=== PATIENT | male | born 1955 | race African-American/Black ===

== ENCOUNTER 2021-03-31 03:12 | Inpatient (IN) | payer SELFPAY ==
[~2021-03-31] VITALS: Ht 170.2 cm; Wt 118.8 kg
[2021-03-31] MEDS ORDERED: SODIUM CHLORIDE 0.9% 1,000 ML IV ONE (04:30)
[2021-03-31 04:51] LABS: BASOPHILS % 1.1 % (0.0-2.0); EOSINOPHILS % 0.9 % (0.0-5.0); HEMATOCRIT. 44.5 % (42.0-52.0); HEMOGLOBIN. 14.9 g/dL (14.0-18.0); MEAN CORPUSCULAR HEMOGLOBIN 26.5 pg (28.0-32.0); MEAN CORPUSCULAR VOLUME 79.5 fL (80.0-94.0); MEAN PLATELET VOLUME 8.7 fl (7.4-10.4); MONOCYTES % 6.5 % (2.0-8.0); NEUTROPHILS % 69.5 % (40.0-76.0); PLATELET 265 x1000/uL (130-400); RED CELL DISTRIBUTION WIDTH 15.3 % (11.6-14.6)
[2021-03-31 04:56] LABS: CHLORIDE 106 mEq/L (98-107)
[2021-03-31 05:01] LABS: ETHANOL BLOOD < 10 mg/dL
[2021-03-31 05:04] LABS: CREATINE KINASE 204 IU/L (39-308)
[2021-03-31 06:40] LABS: CLARITY URINE CLOUDY (CLEAR); COLOR URINE DK YELLOW (YELLOW); KETONES URINE 1+ (NEGATIVE); LEUKOCYTE ESTERASE URINE NEGATIVE (NEGATIVE); NITRITE URINE NEGATIVE (NEGATIVE); OCCULT BLOOD URINE TRACE (NEGATIVE); PROTEIN URINE 3+ (NEGATIVE); SPECIFIC GRAVITY URINE 1.027 (1.005-1.030)
[2021-03-31 06:59] LABS: *AMPHETAMINES SCREEN URINE NEGATIVE (NEGATIVE); *BARBITURATES SCREEN URINE NEGATIVE (NEGATIVE); CANNABINOID URINE SCREEN NEGATIVE (NEGATIVE); METHADONE URINE SCREEN NEGATIVE (NEGATIVE); OPIATES URINE SCREEN NEGATIVE (NEGATIVE); PHENCYCLIDINE URINE SCREEN NEGATIVE (NEGATIVE)
[2021-03-31 07:00] LABS: *BENZODIAZEPINES SCREEN URINE NEGATIVE (NEGATIVE); *COCAINE SCREEN URINE NEGATIVE (NEGATIVE)
[2021-03-31] MEDS ORDERED: DIPHENHYDRAMINE 50MG/ML VIAL IV PRN (09:00)
[2021-03-31] MEDS ORDERED: ONDANSETRON HCL 4MG/2ML INJ IV PRN (09:00)
[2021-03-31] MEDS ORDERED: IPRATROPIUM/ALBUTEROL 0.5-3(2.5)MG/3ML NEB HHN PRN (09:00)
[2021-03-31] MEDS ORDERED: DEXTROSE 50% WATER 50ML SYRINGE IV PRN (12:15)
[2021-03-31] MEDS: AMLODIPINE 5MG TABLET PO SCH (15:05)
[2021-03-31 18:00] VITALS: BP 192/110
[2021-03-31] MEDS: BLOOD SUGAR DIAGNOSTIC STRIP TEST SCH ×2 (18:00→21:09)
[2021-03-31] MEDS: INSULIN LISPRO (MEDIUM DOSE) 100 UNITS/ML SUBCUT SCH ×2 (18:11→20:55)
[2021-03-31 18:21] VITALS: BP 192/110
[2021-03-31] MEDS ORDERED: GLIP10TA3 PO (18:58)
[2021-03-31] MEDS: CLONIDINE 0.1MG TABLET PO PRN (19:07)
[2021-03-31 20:00] VITALS: BP 157/91
[2021-03-31 21:51] LABS: T4 FREE 1.13 ng/dL (0.76-1.46)
[2021-03-31] MEDS ORDERED: PNEUMOCOCCAL 23-VAL P-SAC VAC 0.5 ML IM ONE (22:00)
[2021-03-31] MEDS ORDERED: INFLUENZA VACCINE 05/PF 0.5 ML SYRINGE IM ONE (22:00)
[2021-03-31 22:01] LABS: FOLIC ACID (FOLATE) SERUM >20 ng/mL ng/mL (>5.38)
[2021-03-31 22:12] LABS: VITAMIN B12 SERUM 1126 pg/mL (211-911)
[2021-04-01] VITALS: BP 126/88
[2021-04-01 04:00] VITALS: BP 139/86
[2021-04-01] MEDS: BLOOD SUGAR DIAGNOSTIC STRIP TEST SCH ×3 (05:50→17:10)
[2021-04-01 05:51] LABS: BASOPHILS % 0.8 % (0.0-2.0); HEMATOCRIT. 40.6 % (42.0-52.0); HEMOGLOBIN. 13.1 g/dL (14.0-18.0); MEAN CORPUSCULAR HEMOGLOBIN 26.2 pg (28.0-32.0); MEAN CORPUSCULAR VOLUME 80.9 fL (80.0-94.0); MEAN PLATELET VOLUME 8.9 fl (7.4-10.4); MONOCYTES % 8.2 % (2.0-8.0); PLATELET 204 x1000/uL (130-400); RED BLOOD CELL COUNT 5.01 mill/uL (4.7-6.1); RED CELL DISTRIBUTION WIDTH 15.6 % (11.6-14.6)
[2021-04-01] MEDS: INSULIN LISPRO (MEDIUM DOSE) 100 UNITS/ML SUBCUT SCH ×4 (05:56→21:39)
[2021-04-01 06:01] LABS: CHLORIDE 107 mEq/L (98-107)
[2021-04-01 06:14] LABS: LDL CHOLESTEROL 76 mg/dL (5-100)
[2021-04-01 06:15] LABS: HDL CHOLESTEROL 58 mg/dL (40-59)
[2021-04-01 08:00] VITALS: BP 136/80
[2021-04-01] MEDS: AMLODIPINE 5MG TABLET PO SCH (10:50)
[2021-04-01] MEDS: CLOPIDOGREL 75MG TABLET PO SCH (10:50)
[2021-04-01] MEDS ORDERED: LIDOCAINE HCL 1% 20ML VIAL (Pyxis) INJ INFIL NR (11:00)
[2021-04-01 12:00] VITALS: BP 138/79
[2021-04-01] MEDS: BACITRACIN 15GM TUBE TOP SCH (12:30)
[2021-04-01 16:00] VITALS: BP 141/96
[2021-04-01 20:00] VITALS: BP 158/78
[2021-04-01] MEDS ORDERED: BACITRACIN 15GM TUBE TOP SCH (21:00)
[2021-04-02] VITALS: BP 157/87
[2021-04-02 04:00] VITALS: BP 154/87
[2021-04-02] MEDS: INSULIN LISPRO (MEDIUM DOSE) 100 UNITS/ML SUBCUT SCH ×4 (06:28→22:11)
[2021-04-02] MEDS: BLOOD SUGAR DIAGNOSTIC STRIP TEST SCH ×4 (06:29→21:00)
[2021-04-02 07:23] LABS: CHLORIDE 105 mEq/L (98-107)
[2021-04-02 07:56] LABS: BASOPHILS % 0.6 % (0.0-2.0); EOSINOPHILS % 0.9 % (0.0-5.0); HEMATOCRIT. 40.4 % (42.0-52.0); HEMOGLOBIN. 13.1 g/dL (14.0-18.0); LYMPHOCYTES % 18.6 % (20.0-50.0); MEAN CORPUSCULAR HEMOGLOBIN 26.1 pg (28.0-32.0); MEAN CORPUSCULAR VOLUME 80.8 fL (80.0-94.0); MEAN PLATELET VOLUME 9.1 fl (7.4-10.4); MONOCYTES % 7.7 % (2.0-8.0); NEUTROPHILS % 72.2 % (40.0-76.0); PLATELET 194 x1000/uL (130-400); RED CELL DISTRIBUTION WIDTH 15.3 % (11.6-14.6)
[2021-04-02 08:00] VITALS: BP 139/83
[2021-04-02] MEDS: AMLODIPINE 5MG TABLET PO SCH (08:54)
[2021-04-02] MEDS: CLOPIDOGREL 75MG TABLET PO SCH (08:54)
[2021-04-02] MEDS: BACITRACIN 15GM TUBE TOP SCH (09:00)
[2021-04-02 12:00] VITALS: BP 129/79
[2021-04-02] MEDS: ACETAMINOPHEN 325MG TABLET PO PRN (18:52)
[2021-04-02 20:00] VITALS: BP 134/79
[2021-04-02] MEDS: ATORVASTATIN CALCIUM 10MG TABLET PO SCH (22:09)
[2021-04-03] VITALS: BP 129/60
[2021-04-03 04:00] VITALS: BP 160/82
[2021-04-03] MEDS: INSULIN LISPRO (MEDIUM DOSE) 100 UNITS/ML SUBCUT SCH ×4 (06:54→21:53)
[2021-04-03] MEDS: BLOOD SUGAR DIAGNOSTIC STRIP TEST SCH ×4 (06:57→21:44)
[2021-04-03 07:55] LABS: CHLORIDE 103 mEq/L (98-107)
[2021-04-03 08:00] VITALS: BP 144/87
[2021-04-03 08:11] LABS: BASOPHILS % 0.6 % (0.0-2.0); EOSINOPHILS % 0.3 % (0.0-5.0); HEMATOCRIT. 44.1 % (42.0-52.0); HEMOGLOBIN. 13.3 g/dL (14.0-18.0); LYMPHOCYTES % 13.5 % (20.0-50.0); MEAN CORPUSCULAR HEMOGLOBIN 25.8 pg (28.0-32.0); MEAN CORPUSCULAR VOLUME 85.2 fL (80.0-94.0); MEAN PLATELET VOLUME 9.4 fl (7.4-10.4); MONOCYTES % 7.3 % (2.0-8.0); NEUTROPHILS % 78.3 % (40.0-76.0); PLATELET 196 x1000/uL (130-400); RED BLOOD CELL COUNT 5.17 mill/uL (4.7-6.1); RED CELL DISTRIBUTION WIDTH 15.9 % (11.6-14.6)
[2021-04-03] MEDS: CLOPIDOGREL 75MG TABLET PO SCH (08:56)
[2021-04-03] MEDS: AMLODIPINE 5MG TABLET PO SCH (08:56)
[2021-04-03] MEDS: BACITRACIN 15GM TUBE TOP SCH (08:59)
[2021-04-03 12:00] VITALS: BP 132/66
[2021-04-03 16:00] VITALS: BP 126/72
[2021-04-03 20:00] VITALS: BP 147/86
[2021-04-03] MEDS: ACETAMINOPHEN 325MG TABLET PO PRN (21:45)
[2021-04-03] MEDS: ATORVASTATIN CALCIUM 10MG TABLET PO SCH (21:45)
[2021-04-04] VITALS: BP 145/81
[2021-04-04 04:00] VITALS: BP 132/77
[2021-04-04] MEDS: BLOOD SUGAR DIAGNOSTIC STRIP TEST SCH ×4 (06:07→20:30)
[2021-04-04] MEDS: INSULIN LISPRO (MEDIUM DOSE) 100 UNITS/ML SUBCUT SCH ×4 (06:16→20:37)
[2021-04-04 06:57] LABS: BASOPHILS % 0.3 % (0.0-2.0); EOSINOPHILS % 0.4 % (0.0-5.0); HEMOGLOBIN. 12.2 g/dL (14.0-18.0); MEAN CORPUSCULAR HEMOGLOBIN 25.8 pg (28.0-32.0); MEAN CORPUSCULAR VOLUME 80.4 fL (80.0-94.0); MEAN PLATELET VOLUME 9.1 fl (7.4-10.4); MONOCYTES % 8.8 % (2.0-8.0); NEUTROPHILS % 73.5 % (40.0-76.0); PLATELET 206 x1000/uL (130-400); RED BLOOD CELL COUNT 4.72 mill/uL (4.7-6.1); RED CELL DISTRIBUTION WIDTH 15.3 % (11.6-14.6)
[2021-04-04 07:17] LABS: CHLORIDE 101 mEq/L (98-107)
[2021-04-04] MEDS: CLOPIDOGREL 75MG TABLET PO SCH (08:39)
[2021-04-04] MEDS: AMLODIPINE 5MG TABLET PO SCH (08:42)
[2021-04-04] MEDS: BACITRACIN 15GM TUBE TOP SCH (09:00)
[2021-04-04 09:04] VITALS: BP 158/87
[2021-04-04 20:00] VITALS: BP 150/87
[2021-04-04] MEDS: ATORVASTATIN CALCIUM 10MG TABLET PO SCH (20:36)
[2021-04-05] VITALS: BP 152/89
[2021-04-05 04:00] VITALS: BP 155/97
[2021-04-05] MEDS: BLOOD SUGAR DIAGNOSTIC STRIP TEST SCH ×4 (06:01→20:35)
[2021-04-05] MEDS: INSULIN LISPRO (MEDIUM DOSE) 100 UNITS/ML SUBCUT SCH ×4 (06:33→20:35)
[2021-04-05 08:00] VITALS: BP 144/81
[2021-04-05] MEDS: CLOPIDOGREL 75MG TABLET PO SCH (08:49)
[2021-04-05] MEDS: AMLODIPINE 5MG TABLET PO SCH (08:49)
[2021-04-05 12:00] VITALS: BP 146/84
[2021-04-05] MEDS: BACITRACIN 15GM TUBE TOP SCH (14:08)
[2021-04-05 16:00] VITALS: BP 120/67
[2021-04-05 20:00] VITALS: BP 160/94
[2021-04-05] MEDS: ATORVASTATIN CALCIUM 10MG TABLET PO SCH (20:34)
[2021-04-06] VITALS: BP 138/75
[2021-04-06 04:00] VITALS: BP 125/80
[2021-04-06 06:58] LABS: BASOPHILS % 0.5 % (0.0-2.0); EOSINOPHILS % 0.6 % (0.0-5.0); HEMATOCRIT. 41.1 % (42.0-52.0); HEMOGLOBIN. 13.2 g/dL (14.0-18.0); LYMPHOCYTES % 10.3 % (20.0-50.0); MEAN CORPUSCULAR HEMOGLOBIN 26.1 pg (28.0-32.0); MEAN CORPUSCULAR VOLUME 81.4 fL (80.0-94.0); NEUTROPHILS % 79.6 % (40.0-76.0); PLATELET 273 x1000/uL (130-400); RED BLOOD CELL COUNT 5.06 mill/uL (4.7-6.1); RED CELL DISTRIBUTION WIDTH 15.5 % (11.6-14.6)
[2021-04-06] MEDS: BLOOD SUGAR DIAGNOSTIC STRIP TEST SCH ×4 (07:00→21:11)
[2021-04-06] MEDS: INSULIN LISPRO (MEDIUM DOSE) 100 UNITS/ML SUBCUT SCH ×4 (07:00→21:06)
[2021-04-06 07:49] LABS: CHLORIDE 100 mEq/L (98-107)
[2021-04-06 08:00] VITALS: BP 135/84
[2021-04-06] MEDS: ACETAMINOPHEN 325MG TABLET PO PRN (09:07)
[2021-04-06] MEDS: CLOPIDOGREL 75MG TABLET PO SCH (09:07)
[2021-04-06] MEDS: AMLODIPINE 5MG TABLET PO SCH (09:08)
[2021-04-06] MEDS: SERTRALINE HCL 50MG TABLET PO SCH (09:08)
[2021-04-06] MEDS: BACITRACIN 15GM TUBE TOP SCH (09:09)
[2021-04-06 12:11] VITALS: BP 145/84
[2021-04-06 16:00] VITALS: BP 182/112
[2021-04-06] MEDS: CLONIDINE 0.1MG TABLET PO PRN (16:45)
[2021-04-06 20:00] VITALS: BP 144/79
[2021-04-06] MEDS: ATORVASTATIN CALCIUM 10MG TABLET PO SCH (21:02)
[2021-04-07] VITALS: BP 126/75
[2021-04-07 04:00] VITALS: BP 157/90
[2021-04-07] MEDS: BLOOD SUGAR DIAGNOSTIC STRIP TEST SCH ×4 (06:26→20:08)
[2021-04-07] MEDS: INSULIN LISPRO (MEDIUM DOSE) 100 UNITS/ML SUBCUT SCH ×4 (06:51→20:09)
[2021-04-07 08:00] VITALS: BP 160/80
[2021-04-07] MEDS: AMLODIPINE 5MG TABLET PO SCH (09:44)
[2021-04-07] MEDS: SERTRALINE HCL 50MG TABLET PO SCH (09:45)
[2021-04-07] MEDS: CLOPIDOGREL 75MG TABLET PO SCH (09:45)
[2021-04-07] MEDS: ACETAMINOPHEN 325MG TABLET PO PRN (09:45)
[2021-04-07] MEDS: BACITRACIN 15GM TUBE TOP SCH (09:46)
[2021-04-07 12:00] VITALS: BP 131/76
[2021-04-07] MEDS ORDERED: AMLODIPINE 5MG TABLET PO NR (13:00)
[2021-04-07 16:00] VITALS: BP 123/78
[2021-04-07 20:00] VITALS: BP 133/76
[2021-04-07] MEDS: ATORVASTATIN CALCIUM 10MG TABLET PO SCH (21:03)
[2021-04-07] MEDS: INSULIN GLARGINE UD 100 UNITS/ML SYR SUBCUT SCH (21:05)
[2021-04-08] VITALS: BP 133/81
[2021-04-08 04:00] VITALS: BP 126/87
[2021-04-08] MEDS: INSULIN LISPRO (MEDIUM DOSE) 100 UNITS/ML SUBCUT SCH ×4 (06:47→21:59)
[2021-04-08] MEDS: BLOOD SUGAR DIAGNOSTIC STRIP TEST SCH ×4 (06:47→20:24)
[2021-04-08 08:00] VITALS: BP 125/79
[2021-04-08] MEDS: SERTRALINE HCL 50MG TABLET PO SCH (09:08)
[2021-04-08] MEDS: AMLODIPINE 10MG TABLET PO SCH (09:08)
[2021-04-08] MEDS: CLOPIDOGREL 75MG TABLET PO SCH (09:08)
[2021-04-08] MEDS: BACITRACIN 15GM TUBE TOP SCH (09:13)
[2021-04-08 12:00] VITALS: BP 150/89
[2021-04-08 16:00] VITALS: BP 136/87
[2021-04-08 20:00] VITALS: BP_SYST 143; BP_DIAS 89; BP_DIAS 95
[2021-04-08] MEDS: ATORVASTATIN CALCIUM 10MG TABLET PO SCH (21:57)
[2021-04-08] MEDS: INSULIN GLARGINE UD 100 UNITS/ML SYR SUBCUT SCH (21:58)
[2021-04-09] VITALS: BP 154/94
[2021-04-09 04:00] VITALS: BP 151/91
[2021-04-09] MEDS: BLOOD SUGAR DIAGNOSTIC STRIP TEST SCH ×4 (06:42→21:18)
[2021-04-09] MEDS: INSULIN LISPRO (MEDIUM DOSE) 100 UNITS/ML SUBCUT SCH ×4 (06:51→21:22)
[2021-04-09 08:00] VITALS: BP 133/100
[2021-04-09] MEDS: SERTRALINE HCL 50MG TABLET PO SCH (09:04)
[2021-04-09] MEDS: CLOPIDOGREL 75MG TABLET PO SCH (09:04)
[2021-04-09] MEDS: BACITRACIN 15GM TUBE TOP SCH (09:04)
[2021-04-09] MEDS: AMLODIPINE 10MG TABLET PO SCH (09:04)
[2021-04-09 12:00] VITALS: BP 137/83
[2021-04-09 16:00] VITALS: BP 135/89
[2021-04-09] MEDS: LOSARTAN POTASSIUM 25 MG TABLET PO SCH (19:37)
[2021-04-09 20:00] VITALS: BP 106/88
[2021-04-09] MEDS: ATORVASTATIN CALCIUM 10MG TABLET PO SCH (21:17)
[2021-04-09] MEDS: INSULIN GLARGINE UD 100 UNITS/ML SYR SUBCUT SCH (21:24)
[2021-04-10] VITALS: BP 128/75
[2021-04-10 04:00] VITALS: BP 127/81
[2021-04-10] MEDS: BLOOD SUGAR DIAGNOSTIC STRIP TEST SCH ×4 (06:37→21:00)
[2021-04-10] MEDS: INSULIN LISPRO (MEDIUM DOSE) 100 UNITS/ML SUBCUT SCH ×4 (07:40→22:45)
[2021-04-10 08:00] VITALS: BP 124/83
[2021-04-10] MEDS: AMLODIPINE 10MG TABLET PO SCH (08:44)
[2021-04-10] MEDS: LOSARTAN POTASSIUM 25 MG TABLET PO SCH (08:44)
[2021-04-10] MEDS: CLOPIDOGREL 75MG TABLET PO SCH (08:44)
[2021-04-10] MEDS: SERTRALINE HCL 50MG TABLET PO SCH (08:44)
[2021-04-10] MEDS: BACITRACIN 15GM TUBE TOP SCH (09:00)
[2021-04-10 12:00] VITALS: BP 130/80
[2021-04-10 16:00] VITALS: BP 124/75
[2021-04-10 20:00] VITALS: BP 100/63
[2021-04-10] MEDS: ATORVASTATIN CALCIUM 10MG TABLET PO SCH (22:44)
[2021-04-10] MEDS: INSULIN GLARGINE UD 100 UNITS/ML SYR SUBCUT SCH (22:46)
[2021-04-11] VITALS: BP 117/71
[2021-04-11 04:00] VITALS: BP 147/85
[2021-04-11] MEDS: BLOOD SUGAR DIAGNOSTIC STRIP TEST SCH ×4 (07:30→21:34)
[2021-04-11] MEDS: INSULIN LISPRO (MEDIUM DOSE) 100 UNITS/ML SUBCUT SCH ×4 (07:40→21:34)
[2021-04-11] MEDS: BACITRACIN 15GM TUBE TOP SCH (09:00)
[2021-04-11] MEDS: SERTRALINE HCL 50MG TABLET PO SCH (09:23)
[2021-04-11] MEDS: CLOPIDOGREL 75MG TABLET PO SCH (09:23)
[2021-04-11] MEDS: LOSARTAN POTASSIUM 25 MG TABLET PO SCH (09:24)
[2021-04-11] MEDS: ACETAMINOPHEN 325MG TABLET PO PRN (09:24)
[2021-04-11] MEDS: AMLODIPINE 10MG TABLET PO SCH (09:24)
[2021-04-11 12:00] VITALS: BP 134/85
[2021-04-11 20:00] VITALS: BP 123/72
[2021-04-11] MEDS: ATORVASTATIN CALCIUM 10MG TABLET PO SCH (21:33)
[2021-04-11] MEDS: INSULIN GLARGINE UD 100 UNITS/ML SYR SUBCUT SCH (21:33)
[2021-04-12] VITALS: BP 122/77
[2021-04-12 04:00] VITALS: BP 116/73
[2021-04-12] MEDS: BLOOD SUGAR DIAGNOSTIC STRIP TEST SCH ×4 (06:17→20:28)
[2021-04-12] MEDS: INSULIN LISPRO (MEDIUM DOSE) 100 UNITS/ML SUBCUT SCH ×4 (07:40→20:28)
[2021-04-12 08:00] VITALS: BP 133/86
[2021-04-12] MEDS: BACITRACIN 15GM TUBE TOP SCH (09:00)
[2021-04-12] MEDS: AMLODIPINE 10MG TABLET PO SCH (09:32)
[2021-04-12] MEDS: LOSARTAN POTASSIUM 25 MG TABLET PO SCH (09:32)
[2021-04-12] MEDS: SERTRALINE HCL 50MG TABLET PO SCH (09:32)
[2021-04-12] MEDS: CLOPIDOGREL 75MG TABLET PO SCH (09:32)
[2021-04-12 12:00] VITALS: BP 135/73
[2021-04-12 16:00] VITALS: BP 133/79
[2021-04-12 20:00] VITALS: BP 130/77
[2021-04-12] MEDS: ATORVASTATIN CALCIUM 10MG TABLET PO SCH (20:27)
[2021-04-12] MEDS: INSULIN GLARGINE UD 100 UNITS/ML SYR SUBCUT SCH (23:30)
[2021-04-13] VITALS: BP 124/72
[2021-04-13 04:00] VITALS: BP 129/75
[2021-04-13] MEDS: BLOOD SUGAR DIAGNOSTIC STRIP TEST SCH ×4 (06:40→22:00)
[2021-04-13] MEDS: INSULIN LISPRO (MEDIUM DOSE) 100 UNITS/ML SUBCUT SCH ×4 (06:51→21:00)
[2021-04-13 08:00] VITALS: BP 165/85
[2021-04-13] MEDS: LOSARTAN POTASSIUM 25 MG TABLET PO SCH (09:26)
[2021-04-13] MEDS: AMLODIPINE 10MG TABLET PO SCH (09:27)
[2021-04-13] MEDS: BACITRACIN 15GM TUBE TOP SCH (09:28)
[2021-04-13] MEDS: CLOPIDOGREL 75MG TABLET PO SCH (09:28)
[2021-04-13] MEDS: SERTRALINE HCL 50MG TABLET PO SCH (09:28)
[2021-04-13 12:00] VITALS: BP 143/79
[2021-04-13 16:00] VITALS: BP 120/76
[2021-04-13 20:00] VITALS: BP 160/77
[2021-04-13] MEDS: ATORVASTATIN CALCIUM 10MG TABLET PO SCH (22:34)
[2021-04-13] MEDS: INSULIN GLARGINE UD 100 UNITS/ML SYR SUBCUT SCH (22:37)
[2021-04-14] VITALS: BP 128/77
[2021-04-14 04:00] VITALS: BP 127/74
[2021-04-14] MEDS: BLOOD SUGAR DIAGNOSTIC STRIP TEST SCH ×2 (06:28→13:02)
[2021-04-14] MEDS: INSULIN LISPRO (MEDIUM DOSE) 100 UNITS/ML SUBCUT SCH ×2 (06:31→12:40)
[2021-04-14 08:00] VITALS: BP 151/81
[2021-04-14] MEDS: CLOPIDOGREL 75MG TABLET PO SCH (10:11)
[2021-04-14] MEDS: LOSARTAN POTASSIUM 25 MG TABLET PO SCH (10:11)
[2021-04-14] MEDS: SERTRALINE HCL 50MG TABLET PO SCH (10:11)
[2021-04-14] MEDS: AMLODIPINE 10MG TABLET PO SCH (10:12)
[2021-04-14] MEDS: BACITRACIN 15GM TUBE TOP SCH (10:12)
[2021-04-14 12:00] VITALS: BP 156/84
[2021-04-14 13:24] VITALS: BP 145/79
== END 2021-04-14 14:10 | DRG 45 ==
LOC: ER 04:39 → MICUSO 05:56 → 8WST 15:27
PROVIDERS: ADMIT Internal Medicine; ATTEND Internal Medicine
PROC: 0HDRXZZ Extraction of Toe Nail, External Approach (ICD-10-PCS; principal; 2021-04-01)
DX: I63.9 Cerebral infarction, unspecified (principal); G81.94 Hemiplegia, unspecified affecting left nondominant side; E11.9 Type 2 diabetes mellitus without complications; I10 Essential (primary) hypertension; L03.032 Cellulitis of left toe; F32.9 Major depressive disorder, single episode, unspecified; L60.2 Onychogryphosis; Z20.822 Contact with and (suspected) exposure to COVID-19; R80.9 Proteinuria, unspecified; S91.202A Unspecified open wound of left great toe with damage to nail, initial encounter; X58.XXXA Exposure to other specified factors, initial encounter; Y93.89 Activity, other specified; Y92.89 Other specified places as the place of occurrence of the external cause; Y99.8 Other external cause status
CPT/HCPCS: 36415; 70544; 70551; 71045; 73610; 80048; 80053; 80061; 80305; 80320; 81003; 82140; 82550; 82607; 82746; 82962; 83036; 84439; 84443; 84481; 84484; 85025; 87426; 90686; 90732; 92523; 92610; 93005; 93306; 93880; 93970; 94640; 97110; 97112; 97116; 97162; 97166; 97530; 97535; 99285; A4565; C1893; G0378; J1815; J2405; J3490; J7030; U0003; U0005; G0480